=== PATIENT | male | born 1970 | race African-American/Black ===

== ENCOUNTER 2017-08-19 11:11 | Inpatient (IN) | payer OTHER ==
[~2017-08-19] VITALS: Ht 180.3 cm; Wt 155.1 kg
[2017-08-19 15:00] VITALS: BP 112/71
[2017-08-19] MEDS ORDERED: ANDROGEL1.25 GM TD (15:59)
[2017-08-19] MEDS ORDERED: ODEFSEY TABLET1 EACH PO (15:59)
--- NOTE | 2017-08-19 17:04 | History and Physical ---
History of Present Illness General Date patient seen: Aug 19, 2017 Time patient seen: 15:00 Reason for Hospitalization: participation in clinical trial [id number] Present Illness HPI Pt is electively admitted for the above-captioned phase Ib trial of an investigational anti-HIV drug. There is a 50/50 chance for him actually to receive drug versus placebo in this study design. Allergies: Coded Allergies: DOXYCYCLINE (Verified Allergy, Intermediate, hives, 08/19/17) Medication History Scheduled Emtricitab/Rilpiviri/Tenof Ala (Odefsey Tablet), 1 EACH PO DAILY, (Reported) Testosterone (Androgel), 1.25 GM TD DAILY, (Reported) Patient History History Provided By: Patient Healthcare decision maker SELF Resuscitation status Full code Advanced Directive on File No Patient History Narrative Patient was diagnosed with HIV in 2005 and has most recently been on Odefsey for the past several years with good virologic control. He has never changed ART due to treatment failure. He does have a history of hypogonadism. The patient does not smoke and drinks very rarely. He denies recreational drug use. He has no recent travel to the tropics. He has 2 dogs and a partner who is healthy. Past Medical/Surgical History Past Medical/Surgical History: (1) Clinical trial participant (2) HIV (human immunodeficiency virus infection) Review of Systems Constitutional: Denies: sweats, fever Respiratory: Denies: cough, shortness of breath Cardiovascular: Denies: chest pain, syncope Gastrointestinal: Denies: abdominal pain, diarrhea, nausea, vomiting Genitourinary: Denies: dysuria, frequency Musculoskeletal: Reports: other - occasional back pain Skin: Denies: rash Psychiatric: Denies: no symptoms Neurological: Denies: headache, numbness, dizziness Endocrine: Reports: no symptoms Hematologic/Lymphatic: Reports: no symptoms All Other Systems: negative except mentioned in HPI Physical Exam General Appearance: WD/WN, no apparent distress HEENT: normocephalic, atraumatic Neck: non-tender, supple Respiratory/Chest: lungs clear Cardiovascular/Chest: normal rate, regular rhythm Abdomen: non tender, soft Skin Exam: normal pigmentation Neurologic: no motor/sensory deficits Last 24 Hour Vital Signs Date Time Temp Pulse Resp B/P (MAP) Pulse Ox O2 Delivery O2 Flow Rate FiO2 08/19/17 15:00 97.5 71 19 112/71 98 Room Air 97.5 Height (Feet): 5 Height (Inches): 11.00 Weight (Pounds): 154 Medications Current Medications Medications (Trade) Dose Ordered Sig/Reji Route PRN Reason Start Time Stop Time Status Last Admin Dose Admin Investigational Drug 150 mg/ Sodium Chloride 48 ml @ 1.6 mls/min ONCE ONCE IV 08/20/17 06:30 08/20/17 06:59 Patient Own Medication (Patient's Own Med) 1 ea DAILY ORAL 08/20/17 09:00 09/19/17 08:59 Assessment/Plan Problem List: (1) Clinical trial participant Assessment & Plan: Patient is electively admitted for this clinical trial. He has been afforded an opportunity to make an informed decision to participate in this study, evaluating risks and benefits. He wishes to proceed. ICD Codes: Z00.6 - Encounter for examination for normal comparison and control in clinical research program SNOMED: 070422880, [id number] Status: stable Assessment/Plan Assessment: 1) Admission for clinical trial 2) HIV infection, well controlled 3) hypogonadism 4) occasional back pain Plan: per protocol, dosing investigational agent tomorrow morning. Full note dictated #[id number] GORDON MALDONADO Aug 19, 2017 17:04
[2017-08-19 18:09] LABS: HEMOGLOBIN 14.3 G/DL (14.2-18.0); MEAN CORPUSCULAR VOLUME 90 FL (80-99); PLATELET COUNT 219 K/UL (150-450); RED BLOOD COUNT 4.68 M/UL (4.70-6.10); RED CELL DISTRIBUTION WIDTH 11.1 % (11.6-14.8); WHITE BLOOD COUNT 3.4 K/UL (4.8-10.8)
[2017-08-19 21:08] VITALS: BP 112/62
--- NOTE | 2017-08-20 01:00 | History and Physical Report ---
DATE OF ADMISSION: 08/19/2017 CHIEF COMPLAINT: The patient is electively admitted for participation in [employer] Protocol [id number]. HISTORY OF PRESENT ILLNESS: The patient is a 46-year-old man followed by our office for HIV infection. The patient was diagnosed in 2005, at which time his ghislaine CD4 count was 288 cells/mL and his viral load was 11,482. He was started on treatment at that time and has since been undetectable and his last CD4 count as an outpatient was 485 (40.5%). He has been on Odefsey for several years. He has never had failure on prior HIV regimens with the only switch is coming from poor convenience. He is feeling well at this time. PAST MEDICAL HISTORY: Usual childhood diseases. He denies hypertension, diabetes, or cancer. He was diagnosed with hypogonadism and is on hormone replacement therapy. MEDICATIONS: Medications as an outpatient include Odefsey one tablet daily, AndroGel, and baclofen taken rarely for back pain. ALLERGIES: The patient is allergic to doxycycline, which causes hives. FAMILY HISTORY: Noncontributory. SOCIAL HISTORY: The patient does not smoke or drink. 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 He has traveled to [place] in the past year. He lives with his partner and two dogs. REVIEW OF SYSTEMS: Denies headache. Denies fever, cough, or shortness of breath. Denies nausea, vomiting, or diarrhea. Denies dysuria or hematuria. PHYSICAL EXAMINATION: GENERAL: Revealed a well-nourished, well-developed male, in no acute distress. He is alert and oriented x4. VITAL SIGNS: Temperature 97.7, heart rate is 77, and blood pressure 106/61. His height was 71 inches. His weight was 154 pounds. HEENT: Normocephalic and atraumatic. Pupils equal, round, and reactive. Oropharynx was without thrush or leukoplakia. NECK: Supple. No cervical or axillary adenopathy evident. LUNGS: Clear to auscultation. HEART: Regular rhythm without murmurs or gallops. ABDOMEN: Soft and nontender. EXTREMITIES: Without cyanosis, clubbing, or edema. NEUROLOGIC: Grossly nonfocal for motor or sensory deficits. LABORATORY DATA: CBC is pending. IMPRESSION: 1. Human immunodeficiency virus infection, well controlled. 2. Hypogonadism. DISCUSSION: The patient is a very pleasant 46-year-old man, who wishes to participate in the above-captioned clinical trial. The patient has been offered an opportunity to provide informed consent, evaluating the risks and benefits to him. He wishes to proceed, and in my view, this is a reasonable decision. PLAN: Manage per [id number] protocol. We will anticipate providing the study drug (oral placebo) tomorrow morning. Discharge will be tentatively planned for Wednesday. Stewart Cardozo M.D. DR: MORRIS JOB#: [id number] CC: Stewart Cardozo M.D.; [address] [place] [address], [facility] [address]; [place] [address]; Fax#: [phone]
[2017-08-20 06:00] VITALS: BP 100/57
[2017-08-20] MEDS ORDERED: Investigational Drug 150 MG in NS 48 ML IV ONE (06:30)
[2017-08-20 08:00] VITALS: BP 111/69
[2017-08-20 12:00] VITALS: BP 108/69
[2017-08-20 16:00] VITALS: BP 115/57
--- NOTE | 2017-08-20 16:02 | General Progress Note ---
Assessment/Plan Problem List: (1) Clinical trial participant Assessment & Plan: Patient is electively admitted for this clinical trial. He has been afforded an opportunity to make an informed decision to participate in this study, evaluating risks and benefits. He wishes to proceed. ICD Codes: Z00.6 - Encounter for examination for normal comparison and control in clinical research program SNOMED: [id number], [id number] Status: stable Status Narrative Stable. Assessment/Plan A: 1) participation in [id number] clinical trial, pt doing well 2) HIV infection, well controlled 3) hypogonadism P: Continue to observe per protocol. Pt will have vital signs checked at 0045 tomorrow morning and will have a CBC done locally 24 hrs post dosing. Subjective Date patient seen: Aug 20, 2017 Time patient seen: 15:00 Constitutional: Denies: chills, fever HEENT: Reports: no symptoms Cardiovascular: Denies: chest pain, edema, lightheadedness, palpitations Respiratory: Denies: cough, shortness of breath Gastrointestinal/Abdominal: Denies: diarrhea, nausea, vomiting Genitourinary: Denies: burning, frequency Neurologic/Psychiatric: Reports: no symptoms Endocrine: Reports: no symptoms Hematologic/Lymphatic: Reports: no symptoms Allergies: Coded Allergies: DOXYCYCLINE (Verified Allergy, Intermediate, hives, 08/19/17) All Systems: reviewed and negative except above Subjective Pt feels well, was dosed with investigational agent (or placebo) c. 0645 this morning without any adverse effects noted. Objective Labs Test 08/19/17 16:00 White Blood Count 3.4 K/UL (4.8-10.8) Red Blood Count 4.68 M/UL (4.70-6.10) Hemoglobin 14.3 G/DL (14.2-18.0) Hematocrit 42.0 % (42.0-52.0) Mean Corpuscular Volume 90 FL (80-99) Mean Corpuscular Hemoglobin 30.6 PG (27.0-31.0) Mean Corpuscular Hemoglobin Concent 34.0 G/DL (32.0-36.0) Red Cell Distribution Width 11.1 % (11.6-14.8) Platelet Count 219 K/UL (150-450) Mean Platelet Volume 7.2 FL (6.5-10.1) Neutrophils (%) (Auto) % (45.0-75.0) Lymphocytes (%) (Auto) % (20.0-45.0) Monocytes (%) (Auto) % (1.0-10.0) Eosinophils (%) (Auto) % (0.0-3.0) Basophils (%) (Auto) % (0.0-2.0) Differential Total Cells Counted 100 Neutrophils % (Manual) 61 % (45-75) Lymphocytes % (Manual) 27 % (20-45) Monocytes % (Manual) 9 % (1-10) Eosinophils % (Manual) 1 % (0-3) Basophils % (Manual) 1 % (0-2) Band Neutrophils 1 % (0-8) Platelet Estimate Adequate Platelet Morphology Normal Red Blood Cell Morphology Normal Last 24 Hour Vital Signs Date Time Temp Pulse Resp B/P (MAP) Pulse Ox O2 Delivery O2 Flow Rate FiO2 08/20/17 12:00 98.0 65 20 108/69 100 Room Air 98.0 08/20/17 08:00 97.3 64 18 111/69 98 Room Air 97.3 08/20/17 06:00 95.6 62 18 100/57 98 Room Air 95.6 08/19/17 21:08 98.2 64 18 112/62 97 Room Air 98.2 Intake and Output 08/19/17 08/20/17 19:00 07:00 Intake Total 590 ml 500 ml Balance 590 ml 500 ml Intake Oral 590 ml 500 ml # Voids 1 2 Laboratory Tests 08/19/17 16:00: White Blood Count 3.4L, Red Blood Count 4.68L, Hemoglobin 14.3, Hematocrit 42.0 , Mean Corpuscular Volume 90, Mean Corpuscular Hemoglobin 30.6, Mean Corpuscular Hemoglobin Concent 34.0, Red Cell Distribution Width 11.1L, Platelet Count 219, Mean Platelet Volume 7.2, Neutrophils (%) (Auto) , Lymphocytes (%) (Auto) , Monocytes (%) (Auto) , Eosinophils (%) (Auto) , Basophils (%) (Auto) , Differential Total Cells Counted 100, Neutrophils % ( Manual) 61, Lymphocytes % (Manual) 27, Monocytes % (Manual) 9, Eosinophils % ( Manual) 1, Basophils % (Manual) 1, Band Neutrophils 1, Platelet Estimate Adequate, Platelet Morphology Normal, Red Blood Cell Morphology Normal Height (Feet): 5 Height (Inches): 11.00 Weight (Pounds): 154 General Appearance: WD/WN, no apparent distress EENT: pharynx normal Neck: supple Cardiovascular: normal rate, regular rhythm Respiratory/Chest: lungs clear Abdomen: non tender, soft Edema: no edema noted Arm (L), no edema noted Arm (R), no edema noted Leg (L), no edema noted Leg (R), no edema noted Pedal (L), no edema noted Pedal (R), no edema noted Generalized Neurologic: no motor/sensory deficits GORDON MALDONADO Aug 20, 2017 16:02
[2017-08-21 00:45] VITALS: BP 110/62
[2017-08-21 07:29] LABS: BASOPHILS % (AUTO) 1.5 % (0.0-2.0); HEMATOCRIT 40.5 % (42.0-52.0); HEMOGLOBIN 14.8 G/DL (14.2-18.0); LYMPHOCYTES % (AUTO) 31.3 % (20.0-45.0); MEAN CORPUSCULAR VOLUME 89 FL (80-99); MONOCYTES % (AUTO) 9.3 % (1.0-10.0); NEUTROPHILS % (AUTO) 55.9 % (45.0-75.0); PLATELET COUNT 196 K/UL (150-450); RED BLOOD COUNT 4.56 M/UL (4.70-6.10); RED CELL DISTRIBUTION WIDTH 11.1 % (11.6-14.8); WHITE BLOOD COUNT 3.7 K/UL (4.8-10.8)
[2017-08-21 09:19] VITALS: BP 115/65
[2017-08-21 16:30] VITALS: BP 126/78
[2017-08-21 20:00] VITALS: BP 117/70
[2017-08-21] MEDS ORDERED: Tubing IV Secondary IV ONE (20:35)
[2017-08-21] MEDS ORDERED: NS 500ML ONE (20:35)
--- NOTE | 2017-08-21 22:29 | General Progress Note ---
Assessment/Plan Problem List: (1) Clinical trial participant Assessment & Plan: Pt doing well, anticipate d/c in AM. ICD Codes: Z00.6 - Encounter for examination for normal comparison and control in clinical research program SNOMED: [id number], [id number] Status: stable Assessment/Plan A: 1) participation in [id number] clinical trial, pt doing well 2) HIV infection, well controlled 3) hypogonadism P: Continue to observe per protocol. We will anticipate discharge tomorrow morning. Subjective Date patient seen: Aug 21, 2017 Time patient seen: 11:00 Constitutional: Reports: no symptoms Cardiovascular: Denies: chest pain, lightheadedness, palpitations Respiratory: Denies: cough, shortness of breath Gastrointestinal/Abdominal: Denies: diarrhea, nausea, vomiting Genitourinary: Denies: burning, frequency Neurologic/Psychiatric: Reports: no symptoms Endocrine: Reports: no symptoms Hematologic/Lymphatic: Reports: no symptoms Allergies: Coded Allergies: DOXYCYCLINE (Verified Allergy, Intermediate, hives, 08/19/17) All Systems: reviewed and negative except above Subjective Pt doing well. No new complaints except for odd dreams last night. Appetite is good. Objective Last 24 Hour Vital Signs Date Time Temp Pulse Resp B/P (MAP) Pulse Ox O2 Delivery O2 Flow Rate FiO2 08/21/17 20:00 98.3 73 17 117/70 98 98.3 08/21/17 16:30 97.5 73 20 126/78 100 Room Air 97.5 08/21/17 09:19 97.6 67 19 115/65 100 Room Air 97.6 08/21/17 00:45 97.7 72 19 110/62 100 Room Air 97.7 Intake and Output 08/20/17 08/21/17 19:00 07:00 Intake Total 1070 ml 480 ml Balance 1070 ml 480 ml Intake Oral 1070 ml 480 ml # Voids 3 2 Laboratory Tests 08/21/17 06:59: White Blood Count 3.7L, Red Blood Count 4.56L, Hemoglobin 14.8, Hematocrit 40.5L , Mean Corpuscular Volume 89, Mean Corpuscular Hemoglobin 32.4H, Mean Corpuscular Hemoglobin Concent 36.5H, Red Cell Distribution Width 11.1L, Platelet Count 196, Mean Platelet Volume 7.5, Neutrophils (%) (Auto) 55.9, Lymphocytes (%) (Auto) 31.3, Monocytes (%) (Auto) 9.3, Eosinophils (%) (Auto) 2.0, Basophils (%) (Auto) 1.5 Height (Feet): 5 Height (Inches): 11.00 Weight (Pounds): 155 General Appearance: WD/WN, no apparent distress EENT: PERRL/EOMI Neck: supple Cardiovascular: normal rate, regular rhythm Respiratory/Chest: lungs clear Abdomen: non tender, soft, no organomegaly Edema: no edema noted Arm (L), no edema noted Arm (R), no edema noted Leg (L), no edema noted Leg (R), no edema noted Pedal (L), no edema noted Pedal (R), no edema noted Generalized Neurologic: no motor/sensory deficits Skin: rash - None GORDON MALDONADO Aug 21, 2017 22:29
--- NOTE | 2017-08-22 07:18 | Discharge Instructions ---
Discharge Instructions Discharge Instructions Follow up with: Stewart Maldonado MD Diet: regular Additional Diet Information: no caffeine, no alcohol Resume Normal Activity?: Yes Activity: resume normal activities Pneumonia Vaccine: pt rcvd vaccine prior to this visit Influenza Vaccine (Jan to Jun): pt rcvd vaccine prior to this visit Return to Work/School on: Aug 23, 2017 For Congestive Heart Failure Reminder Report to your physician any weight gain of 5 pounds or more in one week. STEWART MALDONADO Aug 22, 2017 07:17
[2017-08-22 07:21] LABS: BASOPHILS % (AUTO) 1.1 % (0.0-2.0); EOSINOPHILS % (AUTO) 2.7 % (0.0-3.0); HEMATOCRIT 40.9 % (42.0-52.0); HEMOGLOBIN 14.8 G/DL (14.2-18.0); LYMPHOCYTES % (AUTO) 29.3 % (20.0-45.0); MEAN CORPUSCULAR VOLUME 88 FL (80-99); MONOCYTES % (AUTO) 9.9 % (1.0-10.0); NEUTROPHILS % (AUTO) 57.1 % (45.0-75.0); PLATELET COUNT 201 K/UL (150-450); RED BLOOD COUNT 4.63 M/UL (4.70-6.10); RED CELL DISTRIBUTION WIDTH 10.9 % (11.6-14.8); WHITE BLOOD COUNT 4.1 K/UL (4.8-10.8)
--- NOTE | 2017-08-22 07:24 | Discharge Summary ---
Discharge Summary Hospital Course Date of Admission Aug 19, 2017 at 14:34 Date of Discharge 08/22/17 Admitting Diagnosis Clinical trial participant HPI Hugh Mcintyre is a 46 year old male who was admitted on Aug 19, 2017 at 14:34 for Infection, Clinical Research Trial Consultations None. Procedures None. Hospital Course Pt was admitted 08/19 as participant in clinical trial [id number], given study drug (or placebo) on 08/20, and then was observed up to now, with no adverse effects witnessed. Pt is now ready for discharge. Discharge Medications Continued Medications: Emtricitab/Rilpiviri/Tenof Ala (Odefsey Tablet) 1 Each Tablet 1 EACH PO DAILY, TAB (This prescription has been renewed) Testosterone (Androgel) 1.25 Gm Gel.packet 1.25 GM TD DAILY for SHOULDER PAIN (This prescription has been renewed) Discharge Condition Upon Discharge: stable Discharge Disposition Patient was discharged to home, self care. Discharge Diagnoses: (1) Hypogonadism in male (2) HIV (human immunodeficiency virus infection) (3) Clinical trial participant Discharge Instructions Discharge Instructions Follow up with: Stewart Maldonado MD Additional Diet Information: no caffeine, no alcohol Activity: resume normal activities Pneumonia Vaccine: pt rcvd vaccine prior to this visit Influenza Vaccine (Jan to Jun): pt rcvd vaccine prior to this visit May Return to Work/School On: Aug 23, 2017 STEWART MALDONADO Aug 22, 2017 07:24
--- NOTE | 2017-08-22 08:15 | Discharge Summary ---
DATE OF ADMISSION: 08/19/2017 DATE OF DISCHARGE: 08/22/2017 HISTORY OF PRESENT ILLNESS AND HOSPITAL COURSE: The patient is a 46-year-old man followed by our office for HIV infection. The patient was diagnosed in 2005, ghislaine CD4 count was 288. He was started on treatment at that time. He has done well, controlled, undetectable since. He has been taking Odefsey for the past several years. He has not had any failure on prior HIV medications. After providing informed consent, the patient was admitted and dosed the next day with the study medication (or placebo). He tolerated this well and had no significant adverse effects noted. The patient did state that he had unusual dreams the first night, but then this was not repeated last night. DISCHARGE DISPOSITION: He was discharged home with self care and follow up in our office in two days. His discharge condition was stable. His discharge medications include Odefsey one tablet a day and AndroGel. Stewart Cardozo M.D. DR: YURIY JOB#: [id number] CC:
== END 2017-08-22 08:20 | disposition home or self-care (01) | DRG 951 ==
LOC: 3E 14:34
DX: Z00.6 Encounter for examination for normal comparison and control in clinical research program (principal); B20 Human immunodeficiency virus [HIV] disease; E29.1 Testicular hypofunction
CPT/HCPCS: 36415; 85007; 85025